=== PATIENT | female | born 1995 | race African-American/Black ===

== ENCOUNTER 2018-08-17 18:52 | Observation (INO) | payer SELFPAY ==
[2018-08-17] MEDS ORDERED: Morphine 4 MG/ML VIAL ONE (20:15)
[2018-08-17] MEDS ORDERED: Ibuprofen 200 MG TAB ONE (20:25)
--- NOTE | 2018-08-17 20:32 | ULT ---
PELVIC ULTRASOUND: 08/17/18 Endovaginal ultrasound of pelvis performed. INDICATIONS: Pelvic pain. Positive test. Assess for ectopic. FINDINGS: The uterus is mildly prominent. The endometrial stripe is prominent. There is fluid in the endometria l canal. A gestational sac is not identified. Both ovaries are identified and appear unremarkable. Color doppler with spectral analysis demonstrate s blood flow to both ovaries. No free fluid. IMPRESSION: There is thickened endometrium and fluid and/or blood in the endometrial cavity. No evidence of intra uterine gestation at this time. Ectopic is not excluded. Recommend continued followup seria l HCG levels and pelvic ultrasounds as indicated. POS: [facility]
--- NOTE | 2018-08-17 20:33 | RAD ---
PORTABLE CHEST: 08/17/18 HISTORY: Fever. Lung yanes appear well aerated and clear of infiltrate. Heart and mediastinum unremarkable. IMPRESSION: Unremarkable portable chest. POS: [facility]
[2018-08-17] MEDS ORDERED: Ondansetron ODT 4 MG TAB PO PRN (23:10)
[2018-08-18 00:28] VITALS: BMI 22.6
[2018-08-18] MEDS ORDERED: cefTRIAXone\\ROCEPHIN 1 GM in Sodium Chloride 0.9% 100 ML IVPB SCH (00:30)
[2018-08-18] MEDS: Acetaminophen 325 MG TAB PO PRN ×5 (01:07→23:35)
[2018-08-18] MEDS: Potassium Chloride 40 MEQ in Sodium Chloride 0.45% 1,000 ML IV SCH ×2 (01:07→11:22)
--- NOTE | 2018-08-18 04:47 | HP ---
CHIEF COMPLAINT: Left lower quadrant flank pain. The patient was seen initially in [place] and transferred to [facility] for an ultrasound. HISTORY OF PRESENT ILLNESS: Ms. Norman is a 23-year-old female who reported to the emergency room at [place] today for high fever of 103, chills, dysuria, urinary frequency, reports vomiting x1. She also had some left lower quadrant pain that radiated to her left flank pain. Pain began 2 to 3 days ago, but she reports that it was worse today. Fever was also highest today. While she was being evaluated in [place], she had a positive test with serum quant of 162. The patient reports last period was 07/24/2018. She was also found to be hypokalemic. On ultrasound here, impression, thickened endometrium and fluid and/or blood in the endometrial cavity. No evidence of intrauterine gestation at this time. Ectopic is not excluded. Recommend continued followup with serial hCG levels and pelvic ultrasounds as indicated. The patient's urine positive for protein, small blood, leukocyte esterase 50, TNTC white blood cell count. White blood cell count of 11.4. The patient will be admitted to the observation unit for pyelonephritis as well as a followup hCG. IV fluids, Tylenol for fever. PAST MEDICAL HISTORY: None. SURGICAL HISTORY: section x1, para 2, 1, AB 0. PSYCHIATRIC HISTORY: None. SOCIAL HISTORY: Denies any alcohol or drug use. Denies smoking history. Lives at home. REVIEW OF SYSTEMS: CONSTITUTIONAL: The patient reports chills. Reports fever. EYES: Denies any eye pain or vision changes. ENT: Denies rhinorrhea or sore throat. CARDIOVASCULAR: Denies any chest pain or palpitations. RESPIRATORY: Denies cough or shortness of breath. GI: Denies diarrhea. Does report abdominal pain in left flank. Reports appetite changes. Reports nausea and vomiting. : Reports dysuria. Reports frequency. Denies vaginal discharge or bleeding. MUSCULOSKELETAL: Endorses left flank pain. Denies fall or injury. SKIN: Denies rash or changes. NEUROLOGIC: Denies headache, dizziness, or mental status changes. All other systems reviewed and are negative unless mentioned in the HPI. PHYSICAL EXAMINATION: VITAL SIGNS: Blood pressure 111/66, pulse is 116, respiratory rate 18, temperature 99.9, pulse ox is 100% on room air. GENERAL: The patient is alert and oriented to person, place, and time. She is in no acute distress. HEENT: Head is atraumatic and normocephalic. Eyes; eyelids are normal to inspection. Pupils are equally round and reactive to light. ENT; mucous membranes are moist. Mouth exam is normal. NECK: Normal range of motion. Trachea is midline. RESPIRATORY/CHEST: Breath sounds are clear. No signs of respiratory distress. CARDIOVASCULAR: Heart rate, regular rate and rhythm. Heart sounds are normal. ABDOMEN: Nontender. Bowel sounds are heard. BACK: Normal inspection. No CVA tenderness. EXTREMITIES: Upper extremities; normal range of motion. Motor strength is normal. Sensation intact. Radial pulses are equal bilaterally. Lower extremities; normal inspection. Normal range of motion. Motor strength is normal. Sensation intact. Pedal pulses are equal bilaterally. NEUROLOGIC: Speech is normal. The patient is oriented to person, place, and time. SKIN: Warm, dry, and normal in color. PERTINENT LABORATORY DATA: Chest x-ray is unremarkable. Pelvic, transvaginal findings as above. Influenza is negative. Lipase is 5. Lactic acid is 1.7. White blood cell count is 11.4, hemoglobin 11.2, hematocrit is 34.9, and platelet count is 346. Sodium is 137, potassium is 2.8, chloride is 101, carbon dioxide 21, gap is 18, BUN is 5, creatinine is 0.88. Estimated GFR is 90, glucose is 101. Liver enzymes are unremarkable. Total beta hCG 162.77. Urine, positive for protein, blood, leukocyte esterase, white blood cell, one positive yeast, and positive urine test. ASSESSMENT AND PLAN: 1. Pyelonephritis. We will continue IV hydration, Rocephin daily, IV piggyback, Tylenol as needed for fever. 2. Positive with a low hCG, most likely early . We will need to repeat the hCG in 48 hours. 3. Hypokalemia. The patient was given a supplement of potassium in the emergency room. We will repeat that and recheck lab levels in the morning. Dr. Mckeon, the ER physician, did contact Dr. Zapata, the OB hospitalist, who stated it was okay for the patient to be admitted under medical service. He did recommend a repeat hCG as planned. 4. Sequential compression devices will be done for deep venous thrombosis prophylaxis and gastrointestinal with Pepcid will be started. 5. Hospital course will be dependent on clinical findings. Job ID: [id number]
[2018-08-18 06:15] LABS: #Lymphocytes 0.8 thou/uL (1.20-3.40); #Monocytes 1.1 thou/uL (0.11-0.59); #Neutrophils 5.6 thou/uL (1.40-6.50); %Basophils 0.4 % (0.0-1.0); %Eosinophils 0.3 % (0.0-10.0); %Lymphocytes 11.1 % (21.0-51.0); %Monocytes 14.6 % (0.0-10.0); %Neutrophils 73.5 % (42.0-75.0); Hemoglobin 9.8 g/dL (12.0-16.0); Mean Corpuscular HGB CONC 33.4 g/dL (32.0-36.0); Mean Corpuscular Hemoglobin 28.2 pg (27.0-31.0); Mean Corpuscular Volume 84.4 fL (78.0-98.0); Mean Platelet Volume 7.6 fL (7.4-10.4); Platelet Count 264 thou/uL (130-400); RBC Distribution Width 13.7 % (11.5-14.5); Red Blood Cell (RBC) Count 3.47 mill/uL (4.20-5.40); White Blood Cell (WBC) Count 7.5 thou/uL (4.8-10.8)
[2018-08-18 06:32] LABS: Anion Gap 7 mmol/L (10-20); BUN (Urea Nitrogen) 4 mg/dL (7.0-18.7); Calc. Creatinine Clearance 137 mL/min (70-130); Calcium 8.2 mg/dL (7.8-10.44); Carbon Dioxide 24 mmol/L (22-29); Chloride 107 mmol/L (98-107); Estimated GFR-MDRD Greater than 90; Glucose 111 mg/dL (70-105); Potassium 3.4 mmol/L (3.5-5.1); Sodium 135 mmol/L (136-145)
[2018-08-18] MEDS: Famotidine 20 MG TAB PO SCH ×2 (09:41→21:38)
--- NOTE | 2018-08-18 10:48 | PRG ---
DATE OF SERVICE: 08/18/2018 SUBJECTIVE: The patient is feeling significantly better. Still has a little bit of discomfort on her left side more anteriorly than in the flank area. PHYSICAL EXAMINATION: VITAL SIGNS: T-max is 98.4, pulse 98, respirations 18, O2 saturation 96% on room air, BP 98/63. GENERAL APPEARANCE: Age-appropriate female, in no distress. She is awake, alert, oriented, pleasant, and cooperative. ABDOMEN: Soft, nondistended. Positive bowel sounds. She does have some mild tenderness in the left lateral abdomen area with no guarding or rebound. IMPRESSION AND PLAN: 1. Likely pyelonephritis. Continue fluids and Rocephin and antipyretics as needed. 2. Positive test with a very low hCG. Plan is to repeat that. We will reorder that for tomorrow morning, it is set to be redrawn in the afternoon tomorrow. 3. Hypokalemia addressed already. 4. Bacterial vaginosis and candidal vaginitis. We will likely need some treatments once the situation is fully elucidated and the pyelo is fully resolved. Job ID: [id number]
--- NOTE | 2018-08-18 14:11 | CON ---
DATE OF CONSULTATION: 08/18/2018 REASON FOR CONSULTATION: Medical management of pyelonephritis in recently diagnosed patient. HISTORY OF PRESENT ILLNESS: This is a 23-year-old female with no significant past medical history, who presented with 4-day history of left flank pain and a 2-day history of fever to 103 degrees Fahrenheit. The patient was seen and evaluated in the ER yesterday and was found to have UA with small blood, moderate leukocyte esterase, and greater than 50 wbc's. At the time of presentation, she was noted to be febrile. The patient was diagnosed and admitted for pyelonephritis. The patient has been receiving treatment with Rocephin 2 g q.24 hours. She is on her second dose today. In evaluation of the patient, she was noted to have a positive beta -hCG at 162.77. Our team was consulted for medical management of pyelonephritis in a patient with positive beta-hCG. Of note, the patient was also noted to be hypokalemic at 2.8. She was treated, and potassium level has risen to 3.4. The patient currently denies any nausea or vomiting. She did not seek care initially because she just thought she had the flu. The patient states she is doing well today. The left flank pain has improved, and she has been able to tolerate p.o. without any difficulty. PAST MEDICAL HISTORY: The patient denies any significant past medical history. OB HISTORY: The patient had for non-reassuring heart tones after postdates induction of labor. Positive beta-hCG with LMP of 03/05, would place the patient in very early . PAST SURGICAL HISTORY: x1 for non-reassuring heart tones after induction of labor for postdates. MEDICATIONS: None. ALLERGIES: NO KNOWN MEDICATION ALLERGIES. ROS: 12 point review of system was performed, and all were negative except as listed in HPI. PHYSICAL EXAM: General: Well appearing. No acute distress. Sitting on edge of bed eating cheetos during eval. HEENT: MMM, no conjunctival pallor or erythema GI: Soft, non-tender to palpation, no palpable masses : CVA tenderness on left. CARDIO: RRR, No murmurs, pulses 2+ RESP: CTA-BL, No acute respiratory distress EXT: No cyanosis or edema LABORATORY DATA: Initial CBC showed WBC of 11.4, hemoglobin 11.2, hematocrit 34.9 with 80% neutrophils and 1 band. Repeat CBC the following day showed WBC 7.5, hemoglobin 9.8, hematocrit 29.3. CMP on admission showed sodium 137, potassium 2.8, chloride 101, bicarb 21, BUN 5, creatinine 0.88, glucose 101, calcium 9.0, total bilirubin 0.5, AST 14, ALT 11, alkaline phosphatase 77. Repeat BMP on the following day showed sodium 135, potassium 3.4, chloride 107, bicarb 24, BUN 4, creatinine 0.65, glucose 111, and calcium 8.2. Lactic acid on presentation was 1.6. Beta- hCG was obtained, which was positive at 162.77. UA was obtained on arrival and was noted to have 100 protein with small blood and moderate leukocyte esterase and greater than 50 wbc's. IMAGING STUDIES: Chest x-ray was unremarkable. Pelvic ultrasound showed thickened endometrium and fluid and blood in the endometrial cavity. There was no evidence of intrauterine gestation at this time. Ectopic was not excluded. Recommendation with followup serial HCG levels and pelvic ultrasounds were indicated. ASSESSMENT AND PLAN: 1. Likely pyelonephritis. Continue current medical therapy with Rocephin. Recommend decreasing ceftriaxone to 1 g daily and potentially transitioning to oral antibiotics if tolerated for a total treatment duration of 5 to 14 days depending on response to therapy. Still pending results of urine culture to determine sensitivities to the antibiotics. However, given the patient's clinical improvement, likely the antibiotic of choice is appropriate. Potential recommendation for oral therapy would be cefdinir 300 mg p.o. q.12 hours for a total of 5 to 14 days treatment. 2. Positive beta-hCG. Would recommend repeat beta-hCG. Pelvic ultrasound did not show evidence of live intrauterine . LMP was 07/23/2018. If beta-hCG continues to trend up, the patient will need followup ultrasounds when appropriate to verify live intrauterine . There is no concern for ectopic at this time. It was advised that the patient have follow up with [facility]CH[facility]. She has previously seen Dr. Pedro. After discussion, the patient is uncertain whether or not she wants to continue forward if this happens to be a viable . 3. Bacterial vaginosis. The patient is asymptomatic without any discharge or vaginal discomfort. We will not worry about treatment for bacterial vaginosis at that time. This was discussed with the patient. 4. Candidal infection noted on VP3. Again, the patient is asymptomatic. We will not worry about treatment at this time. 5. Hypokalemia, resolving after treatment. The patient with no emesis currently. Thank you for the [facility]CHIT[facility] consultation. We will continue to follow this patient during the course of her hospital stay. Note, the patient was seen and evaluated by Dr. Worthy. Job ID: [id number] MTDD
[2018-08-18] MEDS ORDERED: cefTRIAXone\\ROCEPHIN 2 GM in Sodium Chloride 0.9% 100 ML IVPB SCH (18:00)
[2018-08-19 00:56] LABS: Chlamydia by PCR Not Detected (NotDetected); GC by PCR Not Detected (NotDetected)
[2018-08-19] MEDS: Acetaminophen 325 MG TAB PO PRN ×2 (05:50→15:44)
[2018-08-19 07:37] LABS: Anion Gap 9 mmol/L (10-20); BUN (Urea Nitrogen) 6 mg/dL (7.0-18.7); Calc. Creatinine Clearance 124 mL/min (70-130); Calcium 8.7 mg/dL (7.8-10.44); Carbon Dioxide 26 mmol/L (22-29); Chloride 107 mmol/L (98-107); Estimated GFR-MDRD Greater than 90; Glucose 100 mg/dL (70-105); Potassium 3.2 mmol/L (3.5-5.1); Sodium 139 mmol/L (136-145)
[2018-08-19 07:42] LABS: Hemoglobin 9.7 g/dL (12.0-16.0); Mean Corpuscular HGB CONC 32.9 g/dL (32.0-36.0); Mean Corpuscular Hemoglobin 27.5 pg (27.0-31.0); Mean Corpuscular Volume 83.7 fL (78.0-98.0); Mean Platelet Volume 7.3 fL (7.4-10.4); Platelet Count 300 thou/uL (130-400); RBC Distribution Width 13.6 % (11.5-14.5); Red Blood Cell (RBC) Count 3.52 mill/uL (4.20-5.40); White Blood Cell (WBC) Count 5.7 thou/uL (4.8-10.8)
[2018-08-19 07:43] LABS: Band 6 % (5-11); Lymphocytes 29 % (21-51); MDiff Complete? YES; Monocytes 16 % (0-10); Neutrophil 49 % (42-75); Platelet Morphology Comment Appears Adequate
[2018-08-19] MEDS ORDERED: Potassium Chloride 20 MEQ TAB PO SCH (08:45)
[2018-08-19] MEDS ORDERED: Cefdinir 300 MG CAP PO SCH (09:00)
--- NOTE | 2018-08-19 09:54 | DIS ---
DATE OF ADMISSION: 08/17/2018 DATE OF DISCHARGE: 08/18/2018 DISCHARGE DIAGNOSES: 1. Pyelonephritis. 2. . 3. Nausea and vomiting. 4. Stable anemia. 5. Hypokalemia. HISTORY: This patient is a 23-year-old female, who presents to the emergency department in [place] on 08/17/2018, with fever, vomiting, and some left flank pain. She was noted to have flank tenderness consistent with pyelonephritis. Labs also indicated a positive hCG at 164. The patient was subsequently transferred to this facility and then placed on observation, started on IV fluids and IV antibiotics. Rocephin was initially started. HOSPITAL COURSE: The patient received IV fluids, IV Rocephin, p.r.n. antiemetics and subsequently responded well. Her pain improved. Her nausea resolved and she was able to take p.o.'s adequately. Urine culture only grew less than 10,000 colonies of gram-negative jae. However, she was responding clinically to the Rocephin. She was felt to be appropriate for transition to oral antibiotics. The patient had a vaginitis screen, which was positive for Gardnerella and Deonna. Given her pain symptoms in the early test, there was initial concern about the possibility of ectopic . However, with the substantial resolution of her symptoms fairly promptly that concern was diminished. She was seen in consultation by [facility]. There was no major concerns for ectopic . Her vaginitis was felt to be asymptomatic and did not warrant specific intervention. She did have a repeat hCG, which had increased to 252 and appeared to confirm the . The patient was made aware. Once the patient was tolerating p.o.'s and had empirically improved with the Rocephin given the low colony counts on her urinalysis, she was felt to be stable for discharge to home. She had some oral potassium and oral cefdinir ordered prior to discharge. PHYSICAL EXAMINATION: VITAL SIGNS: On the day of discharge, temperature is 98.4, T-max 99.0, pulse 104, blood pressure 96/62, respirations 16, and O2 sat was 97% on room air. GENERAL APPEARANCE: Age-appropriate female, in no distress. She is awake, alert, oriented, pleasant, and cooperative. HEART: Regular without murmur. LUNGS: Clear. ABDOMEN: Soft, nontender, and nondistended. EXTREMITIES: No edema. DISPOSITION: The patient will be discharged to home. DISCHARGE MEDICATIONS: She will be on cefdinir 300 mg one p.o. b.i.d. DISCHARGE INSTRUCTIONS: She says that she has seen Dr. Pedro in the past and would follow up there regarding her and she can return to the emergency department should she have any problems prior to that time. She will be on a normal diet. Her activity level is as tolerated. Job ID: [id number]
[2018-08-19] MEDS: Famotidine 20 MG TAB PO SCH (12:20)
[2018-08-19 15:44] VITALS: BP 116/71; TEMP 98.5
== END 2018-08-19 16:45 | disposition home health service (06) ==
LOC: ERS 18:52 → 3SE 23:00
PROVIDERS: ADMIT Hospitalist; ATTEND Hospitalist
DX: O23.00 Infections of kidney in pregnancy, unspecified trimester (principal); O23.599 Infection of other part of genital tract in pregnancy, unspecified trimester; E87.6 Hypokalemia; D64.9 Anemia, unspecified; R11.2 Nausea with vomiting, unspecified
CPT/HCPCS: 36415; 71045; 76856; 80048; 83605; 83690; 84702; 85025; 87040; 87480; 87491; 87510; 87591; 87660; 87804; 96361; 96365; 96374; 96375; G0378; J0696; J2270; J3480; J7050

== ENCOUNTER 2019-01-03 09:11 | Outpatient (CLI) | payer OTHER ==
--- NOTE | 2019-01-03 12:18 | ULT ---
OB ULTRASOUND: HISTORY: Size and dates. FINDINGS: Real-time imaging of the pelvis shows a single viable intrauterine in a vertex presentation . Cervical canal length is 3.9 cm. The placenta is anterior in location without evidence of previa. The amniotic fluid is adequate with an amniotic fluid index of 12.6. measurements are as follows: BPD 6.8 cm, 23 weeks 6 days Head circumference 22 cm, 24 weeks 1 day Abdominal circumference 18.7 cm, 23 weeks 4 days Femur length 4.2 cm, 23 weeks 4 days anatomy assessment shows a normal-appearing head, cerebellum, 4-chamber heart, stomach, kidneys , cord insertion, bladder, and extremities. A 3-vessel cord is identified. IMPRESSION: 1. Single viable intrauterine in a cephalic presentation, overall measurements correspondi ng to a gestational age of 23 weeks 6 days, estimated date of delivery 04/26/2019. 2. Placenta which is anterior in location without evidence of previa. POS: [facility]
== END 2019-01-03 09:12 | disposition home or self-care (01) ==
LOC: BICULT 09:11
PROVIDERS: ATTEND Nurse Practitioner
DX: Z34.82 Encounter for supervision of other normal pregnancy, second trimester (principal); Z3A.23 23 weeks gestation of pregnancy
CPT/HCPCS: 76805

== ENCOUNTER 2023-01-11 17:17 | Emergency (ER) | payer OTHER ==
[~2023-01-11 17:17] MED LIST: Iopamidol-370 76% 500 ML MDV (1 ML CHARGE) ONE
[2023-01-11] MEDS ORDERED: Ketorolac Tromethamine 30 MG/ML VIAL ONE (18:44)
[2023-01-11 19:21] LABS: #Monocytes 0.5 thou/uL (0.11-0.59); #Neutrophils 3.1 thou/uL (1.40-6.50); %Basophils 0.3 % (0.0-1.0); %Eosinophils 0.7 % (0.0-10.0); %Lymphocytes 39.8 % (21.0-51.0); %Monocytes 7.5 % (0.0-10.0); %Neutrophils 51.5 % (42.0-75.0); Hematocrit 37.1 % (36.0-47.0); Hemoglobin 12.8 g/dL (12.0-16.0); Mean Corpuscular HGB CONC 34.5 g/dL (32.0-36.0); Mean Corpuscular Hemoglobin 30.1 pg (27.0-31.0); Mean Corpuscular Volume 87.3 fl (78.0-98.0); Mean Platelet Volume 9.7 fL (7.4-10.4); Platelet Count 366 10x3/uL (130-400); RBC Distribution Width 13.2 % (11.5-14.5); Red Blood Cell (RBC) Count 4.25 mill/uL (4.20-5.40)
[2023-01-11 19:30] LABS: Bacteria/HPF 1+ HPF (None Seen); Bilirubin Negative (Negative); Blood, Urine Negative (Negative); CAUTI Indications for Culture Dysuria,urgency,freq; Clarity Turbid (Clear); Glucose, Urine (Dipstick) Normal (Negative); Ketone, Urine Negative (Negative); Leukocyte 250 Leu/uL (Negative); Nitrite 2+ (Negative); Protein, Urine (Dipstick) Negative (Neg-Trace); RBC/HPF 0-3 HPF (0-3); Specific Gravity, Urine 1.012 (1.002-1.036); Squamous Epithelial 0-3 HPF (0-3); Urobilinogen Normal mg/dL (Less than 2)
[2023-01-11 19:31] LABS: Urine Culture Reflex No No
[2023-01-11 19:49] LABS: Troponin I Less than 0.010 ng/mL (< 0.028)
[2023-01-11 20:07] LABS: BHCG - Serum Negative (NEGATIVE); Pregs Control Background? CLEAR/WHITE (CLR/WHITE); Pregs Control Bar Appear? YES (CONTROL BAR)
[2023-01-11 20:56] LABS: ALT (SGPT) 9 U/L (8-55); AST (SGOT) 14 U/L (5-34); Albumin 4.6 g/dL (3.5-5.0); Alkaline Phosphatase 61 U/L (40-110); Anion Gap 12 mmol/L (10-20); BUN (Urea Nitrogen) 10 mg/dL (7.0-18.7); Bilirubin, Total 0.5 mg/dL (0.2-1.2); Calc. Creatinine Clearance 0 mL/min (70-130); Calcium 9.8 mg/dL (7.8-10.44); Carbon Dioxide 25 mmol/L (22-29); Chloride 106 mmol/L (98-107); Estimated GFR 96; Globulin 3.5 g/dL (2.4-3.5); Lipase 23 U/L (8-78); Potassium 3.4 mmol/L (3.5-5.1); Protein, Total 8.1 g/dL (6.0-8.3); Sodium 140 mmol/L (136-145)
[2023-01-11 21:35] LABS: Glucose 84 mg/dL (70-105)
== END 2023-01-11 22:03 | disposition home or self-care (01) ==
LOC: ERS 17:17
DX: N39.0 Urinary tract infection, site not specified (principal)
CPT/HCPCS: 71045; 74177; 80053; 81001; 83690; 84484; 84703; 85025; 93005; 96361; 96374; J1885; Q9967